=== PATIENT | male | born 1980 | race Caucasian/White ===

== ENCOUNTER 2020-12-25 12:28 | Emergency (ER) | payer OTHER ==
[~2020-12-25] VITALS: Ht 177.8 cm; Wt 82.0 kg
[2020-12-25] MEDS ORDERED: IV NORMAL SALINE 1,000ML 1,000 ML IV ONE (13:30)
[2020-12-25] MEDS ORDERED: PROCHLORPERAZINE 10 MG/2 ML VIAL. IV ONE (13:30)
[2020-12-25] MEDS ORDERED: diphenhydrAMINE 50 MG/ML VIAL IVP ONE ×2 (13:30→14:00)
[2020-12-25] MEDS ORDERED: KETOROLAC 15 MG/ML VIAL. IVP ONE (14:00)
--- NOTE | 2020-12-25 14:01 | RAD ---
EXAMINATION: CT head without IV contrast. INDICATION:40 years, Male, headache. COMPARISON: None TECHNIQUE: Spiral acquisition of contiguous images from the skull base to the vertex were obtained. S agittal and coronal 2D reformatted series were provided by the technologist. Soft tissue and bone win sonali algorithms were reviewed. Exposure: One or more of the following individualized dose reduction techniques were utilized for thi s examination: 1. Automated exposure control 2. Adjustment of the mA and/or kV according to patient size 3. Use of iterative reconstruction technique. FINDINGS: Neither mass, midline shift, intracranial hemorrhage, acute/subacute ischemic changes, nor extraaxial fluid collections are seen. The brain parenchyma is normal in appearance. The ventricles are normal in size. Minimal mucosal thickening in the maxillary sinuses. The remaining paranasal sinuses, mastoid air bianca ls, and middle ears are clear.The orbital contents appear within normal limits. IMPRESSION: No evidence of acute intracranial abnormality. Electronically signed by: Jax Porter MD (12/25/2020 1:59 PM) [id number]
--- NOTE | 2020-12-25 15:05 | PHYS DOC ---
Past History Additional Past Medical Histor: Colitis (GRICEL BENITO APRN) Past Surgical History: No Surgical History (GRICEL BENITO APRN) General Adult EDM: Chief Complaint: HEADACHE HPI: HPI: Patient is a 40-year-old male who presents with migraine. Patient states he has had a headache off and on for 2 weeks. Patient's been taking ibuprofen at home with no relief. Patient also reports nausea and vomiting. Patient denies thunderclap. Denies worst headache of his life. Patient has had history of colitis. (GRICEL BENITO APRN) Review of Systems: Review of Systems: Constitutional: Denies fever or chills Eyes: Denies change in visual acuity HENT: Denies nasal congestion or sore throat Respiratory: Denies cough or shortness of breath Cardiovascular: Denies chest pain or edema GI: Denies abdominal pain, reports nausea and vomiting. : Denies dysuria Musculoskeletal: Denies back pain or joint pain Integument: Denies rash Neurologic: Reports headache, denies focal weakness or sensory changes Endocrine: Denies polyuria or polydipsia Lymphatic: Denies swollen glands Psychiatric: Denies depression or anxiety (GRICEL BENITO APRN) Current Medications: Current Meds: Current Medications Medications (Trade) Dose Ordered Sig/Larry Start Time Stop Time Status Last Admin Dose Admin Diphenhydramine HCl (Benadryl) 25 mg 1X ONCE 12/25/20 14:00 12/25/20 14:01 DC 12/25/20 13:58 25 MG Ketorolac Tromethamine (Toradol 15mg Vial) 15 mg 1X ONCE 12/25/20 14:00 12/25/20 14:01 DC 12/25/20 13:59 15 MG Prochlorperazine Edisylate (Compazine) 10 mg 1X ONCE 12/25/20 13:30 12/25/20 13:33 DC 12/25/20 13:42 10 MG Sodium Chloride 1,000 ml @ 1,000 mls/hr 1X ONCE 12/25/20 13:30 12/25/20 14:29 DC 12/25/20 13:43 1,000 MLS/HR (GRICEL BENITO APRN) Allergies: Allergies: Allergies Coded Allergies Type Severity Reaction Last Updated Verified lisinopril Allergy Unknown 12/25/20 Yes (BENITO,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 [] HENT: Normocephalic, atraumatic, bilateral external ears normal, oropharynx moist, no oral exudates, nose normal. [] Eyes: PERRLA, EOMI, conjunctiva normal, no discharge. [] Neck: Normal range of motion, no tenderness, supple, no stridor. [] Cardiovascular:Heart rate regular rhythm, no murmur [] Lungs & Thorax: Bilateral breath sounds clear to auscultation [] Abdomen: Bowel sounds normal, soft, no tenderness, no masses, no pulsatile masses. [] Skin: Warm, dry, no erythema, no rash. [] Back: No tenderness, no CVA tenderness. [] Extremities: No tenderness, no cyanosis, no clubbing, ROM intact, no edema. [] Neurologic: Alert and oriented X 3, normal motor function, normal sensory function, no focal deficits noted. [] Psychologic: Affect normal, judgement normal, mood normal. [] (GRICEL BENITO SPE[employer] TEACHER) Current Patient Data: Vital Signs: Vital Signs Date Time Temp Pulse Resp B/P (MAP) Pulse Ox O2 Delivery O2 Flow Rate FiO2 12/25/20 12:49 98.0 57 16 137/81 (99) 98 Room Air (GRICEL BENITO [employer] TEACHER) EKG: EKG: [] (GRICEL BENITO APRN) Radiology/Procedures: Radiology/Procedures: []EXAMINATION: CT head without IV contrast. INDICATION:40 years, Male, headache. COMPARISON: None TECHNIQUE: Spiral acquisition of contiguous images from the skull base to the vertex were obtained. Sagittal and coronal 2D reformatted series were provided by the technologist. Soft tissue and bone window algorithms were reviewed. Exposure: One or more of the following individualized dose reduction techniques were utilized for this examination: 1. Automated exposure control 2. Adjustment of the mA and/or kV according to patient size 3. Use of iterative reconstruction technique. FINDINGS: Neither mass, midline shift, intracranial hemorrhage, acute/subacute ischemic changes, nor extraaxial fluid collections are seen. The brain parenchyma is normal in appearance. The ventricles are normal in size. Minimal mucosal thickening in the maxillary sinuses. The remaining paranasal sinuses, mastoid air cells, and middle ears are clear.The orbital contents appear within normal limits. IMPRESSION: No evidence of acute intracranial abnormality. Electronically signed by: Jax Porter MD (12/25/2020 1:59 PM) [id number] (GRICEL BENITO APRN) Heart Score: C/O Chest Pain: No Risk Factors: Risk Factors: DM, Current or recent (<one month) smoker, HTN, HLP, family history of CAD, obesity. Risk Scores: Score 0 - 3: 2.5% MACE over next 6 weeks - Discharge Home Score 4 - 6: 20.3% MACE over next 6 weeks - Admit for Clinical Observation Score 7 - 10: 72.7% MACE over next 6 weeks - Early Invasive Strategies (GRICEL BENITO APRN) Course & Med Decision Making: Course & Med Decision Making Pertinent Labs and Imaging studies reviewed. (See chart for details) [] 40-year-old male presents with migraine for 2 weeks. Patient is also reporting nausea and vomiting at home. Patient is rating pain 10/10. Denies thunderclap. Denies worst headache of his life. CT head ordered to rule out intracranial abnormalities. CT head negative for acute abnormalities. Patient given Toradol, Compazine, NS bolus, Benadryl. Discussed results with patient. Patient rates pain 3/10. Patient states he feels much better and is okay with going home. Patient is hemodynamically stable upon disposition. (GRICEL BENITO APRN) Dragon Disclaimer: Dragon Disclaimer: This electronic medical record was generated, in whole or in part, using a voice recognition dictation system. (GRICEL BENITO APRN) Attending Co-Sign The patient was seen and interviewed as well as examined at the bedside. The chart was reviewed. The case was discussed. Agree with the plan of care. (EDGAR WELCH DO) Departure Departure: Impression: Primary Impression: Headache Qualified Codes: R51.9 - Headache, unspecified Disposition: HOME / SELF CARE / HOMELESS Condition: STABLE Referrals: PCP,ISIAH (PCP) Patient Instructions: General Headache Without Cause Additional Instructions: You are seen the emergency room for a headache. You were given medication and your headache improved. CT of your head was negative. Make sure you are drinking plenty of fluids. Please return emergency room with worsening symptoms or concerns. EMERGENCY DEPARTMENT GENERAL DISCHARGE INSTRUCTIONS Thank you for coming to [facility] (ED) today and trusting us with you care. We trust that you had a positivie experience in our Emergency Department. If you wish to speak to the department management, you may call the director at [phone]. YOUR FOLLOW UP INSTRUCTIONS ARE FOLLOWS: 1. Do you have a private Doctor? If you do not have a private doctor, please ask for a resource list of physicians or clinics that may be able to assist you with follow up care. 2. The Emergency Physician has interpreted your x-rays. The X-Ray specialist will also review them. If there is a change in the findings, you will be notified in 48 hours when at all possible. 3. A lab test or culture has been done, your results will be reviewed and you will be notified if you need a change in treatment. ADDITIONAL INSTRUCTIONS AND INFORMATION: 1. Your care today has been supervised by a physician who is specially trained in emergency care. Many problems require more than one evaluation for a complete diagnosis and treatment. We recommend that you schedule your follow up appointment as recommended to ensure complete treatment of you illness or injury. If you are unable to obtain follow up care and continue to have a problem, or if your condition worsens, we recommend that you return to the ED. 2. We are not able to safely determine your condition over the phone nor are we able to give sound medical advice over the phone. For these safety reasons, if you call for medical advice we will ask you to come to the ED for further evaluation. 3. If you have any questions regarding these discharge instructions please call the ED at [phone]. SAFETY INFORMATION: In the interest of safety, wellness, and injury prevention; we encourage you to wear your sealbelt, if you smoke; quite smoking, and we encourage family to use a protective helmet for bicycling and other sporting events that present an increased risk for head injury. IF YOUR SYMPTOMS WORSEN OR NEW SYMPTOMS DEVELOP, OR YOU HAVE CONCERNS ABOUT YOUR CONDITION; OR IF YOUR CONDITION WORSENS WHILE YOU ARE WAITING FOR YOUR FOLLOW UP APPOINTMENT; EITHER CONTACT YOUR PRIMARY CARE DOCTOR, THE PHYSICIAN WHOSE NAME AND NUMBER YOU WERE GIVEN, OR RETURN TO THE ED IMMEDIATELY. Scripts Ondansetron Hcl (ZOFRAN) 4 Mg Tablet 4 MG PO TID PRN PRN for NAUSEA, #9 TAB Prov: GRICEL BENITO APRN 12/25/20 GRICEL BENITO APRN Dec 25, 2020 15:05 EDGAR WELCH DO Dec 26, 2020 06:14
[2020-12-25] MEDS ORDERED: ONDA4TAB7 PO (15:07)
[2020-12-25 15:21] VITALS: BP 145/112
== END 2020-12-25 15:25 | disposition home or self-care (01) ==
LOC: ER 12:28
DX: G43.909 Migraine, unspecified, not intractable, without status migrainosus (principal); Z88.8 Allergy status to other drugs, medicaments and biological substances
CPT/HCPCS: 70450; 96361; 96374; 96375; 99284; J0780; J1200; J1885; J7030